=== PATIENT | female | born 1995 | race Caucasian/White ===

== ENCOUNTER 2018-09-25 19:23 | Observation (INO) | payer SELFPAY ==
[~2018-09-25] VITALS: Ht 160 cm; Wt 63.5 kg
[2018-09-25] MEDS ORDERED: PREN-55 MT (20:32)
== END 2018-09-25 20:50 | disposition home or self-care (01) ==
LOC: L&D 19:23
PROVIDERS: ADMIT Obstetrics & Gynecology; ATTEND Obstetrics & Gynecology
DX: O26.852 Spotting complicating pregnancy, second trimester (principal); O26.892 Other specified pregnancy related conditions, second trimester; M79.662 Pain in left lower leg; M79.661 Pain in right lower leg; Z3A.26 26 weeks gestation of pregnancy
CPT/HCPCS: 99281; G0378

== ENCOUNTER 2018-09-25 21:45 | Emergency (ER) | payer SELFPAY ==
[~2018-09-25] VITALS: Ht 162.6 cm; Wt 64.0 kg
[~2018-09-25 21:45] MED LIST: PREN-55 MT
[2018-09-26 00:28] LABS: CLARITY URINE TURBID (CLEAR); COLOR URINE YELLOW (YELLOW); KETONES URINE NEGATIVE (NEGATIVE); LEUKOCYTE ESTERASE URINE 2+ (NEGATIVE); NITRITE URINE NEGATIVE (NEGATIVE); OCCULT BLOOD URINE 3+ (NEGATIVE); PH URINE 7.5 (4.5-8.0); PROTEIN URINE 1+ (NEGATIVE); SPECIFIC GRAVITY URINE 1.019 (1.005-1.030); UROBILINOGEN URINE 0.2 E.U./dL (0.2-1.0)
[2018-09-26 01:12] VITALS: BP 100/69
== END 2018-09-26 01:37 | disposition home or self-care (01) ==
LOC: ER 21:45
DX: O23.42 Unspecified infection of urinary tract in pregnancy, second trimester (principal); O26.892 Other specified pregnancy related conditions, second trimester; M79.605 Pain in left leg; M79.604 Pain in right leg; Z3A.23 23 weeks gestation of pregnancy; Z98.890 Other specified postprocedural states
CPT/HCPCS: 87077; 87186; 93970; 99284

== ENCOUNTER 2023-05-24 17:42 | Emergency (ER) | payer SELFPAY ==
[~2023-05-24] VITALS: Ht 165.1 cm; Wt 54.0 kg
[2023-05-24 17:48] VITALS: BP 115/71; PULSE 78; RESP 18; TEMP 98.1; O2SAT 97
[2023-05-24] MEDS ORDERED: ONDANSETRON HCL 4MG TABLET PO ONE (18:15)
[2023-05-24] MEDS ORDERED: ACETAMINOPHEN 325MG TABLET PO STA (18:15)
[2023-05-24 18:29] LABS: CLARITY URINE TURBID (CLEAR); COLOR URINE YELLOW (YELLOW); GLUCOSE URINE NEGATIVE (NEGATIVE); KETONES URINE NEGATIVE (NEGATIVE); LEUKOCYTE ESTERASE URINE NEGATIVE (NEGATIVE); NITRITE URINE NEGATIVE (NEGATIVE); OCCULT BLOOD URINE NEGATIVE (NEGATIVE); PH URINE 5.5 (4.5-8.0); PROTEIN URINE 1+ (NEGATIVE); SPECIFIC GRAVITY URINE 1.029 (1.005-1.030); UROBILINOGEN URINE 0.2 E.U./dL (0.2-1.0)
[2023-05-24] MEDS ORDERED: IBUPROFEN 400MG TABLET PO ONE (18:30)
[2023-05-24 18:32] LABS: BACTERIA URINE 2+; RBC URINE 0-2 /hpf (0-2); SQUAMOUS EPITHELIAL CELL URINE 2+ /lpf (RARE/1+); YEAST URINE NONE SEEN
[2023-05-24 18:45] LABS: BASOPHILS % 0.3 % (0.0-2.0); EOSINOPHILS % 1.3 % (0.0-5.0); HEMOGLOBIN. 12.6 g/dL (12.0-16.0); LYMPHOCYTES % 8.3 % (20.0-50.0); MEAN CORPUSCULAR HGB CONC 34.1 g/dL (31.0-37.0); MEAN CORPUSCULAR VOLUME 87.9 fL (81.0-99.0); MEAN PLATELET VOLUME 8.1 fl (7.4-10.4); MONOCYTES % 6.8 % (2.0-8.0); NEUTROPHILS % 83.3 % (40.0-76.0); PLATELET 143 x1000/uL (130-400); RED BLOOD CELL COUNT 4.21 mill/uL (4.2-5.4); RED CELL DISTRIBUTION WIDTH 14.6 % (11.6-14.6); WHITE BLOOD COUNT 8.7 x1000/uL (4.5-11.0)
[2023-05-24 18:52] LABS: CHLORIDE 108 mEq/L (98-107); INDEX HEMOLYSI 1 (1-3); INDEX ICTERIC 1 (1-4); INDEX LIPEMIC 1 (1-3); POTASSIUM 3.6 mEq/L (3.5-5.1); SODIUM 139 mEq/L (136-145)
[2023-05-24 19:02] LABS: ALANINE AMINOTRANSFERASE 26 IU/L (13-61); ALBUMIN 4.1 g/dL (3.4-5.0); ASPARTATE AMINOTRANSFERASE 22 IU/L (15-37); BILIRUBIN TOTAL 1.3 mg/dL (0.1-1.0); CALCIUM 8.6 mg/dL (8.5-10.1); CARBON DIOXIDE 24 mEq/L (21-32); CREATININE 0.8 mg/dL (0.6-1.3); GLUCOSE 92 mg/dL (70-105); PROTEIN TOTAL 7.7 g/dL (6.0-8.3); UREA NITROGEN BLOOD 9 mg/dL (7-21)
[2023-05-24 19:09] LABS: TROPONIN I HIGH SENSITIVITY < 4 ng/L (<54)
[2023-05-24] MEDS ORDERED: IBUP-2028 MT (20:08)
[2023-05-24] MEDS ORDERED: TOPUD MT (20:08)
== END 2023-05-24 20:48 | disposition home or self-care (01) ==
LOC: ER 17:46
DX: U07.1 COVID-19 (principal); R51.9 Headache, unspecified; J02.9 Acute pharyngitis, unspecified; R07.89 Other chest pain; R05.9 Cough, unspecified; I10 Essential (primary) hypertension; Z98.890 Other specified postprocedural states
CPT/HCPCS: 99285; 71045; 87426; 80053; 81003; 81025; 87430; 83690; 85025; 84484; 87070; 36415; 93005; Q0162; C9803